=== PATIENT | male | born 1985 | race African-American/Black ===

== ENCOUNTER 2016-07-08 06:37 | Emergency (ER) | payer SELFPAY ==
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
[2016-07-08 11:41] LABS: ABSOLUTE EOSINOPHILS # (AUTO) 0.1 10^3/uL (0.0-0.6); ABSOLUTE LYMPHOCYTES (AUTO) 2.5 10^3/uL (0.5-4.7); ABSOLUTE MONOCYTES (AUTO) 1.2 10^3/uL (0.1-1.4); ABSOLUTE NEUT (AUTO) 9.3 10^3/uL (1.7-8.2); BASOPHILS % (AUTO) 0.3 % (0-2); EOSINOPHILS % (AUTO) 0.4 % (0-6); HEMATOCRIT 43.1 % (37.9-51.0); HEMOGLOBIN 13.8 g/dL (13.5-17.0); HGB HCT DIFFERENCE -1.7; LYMPHOCYTES % (AUTO) 18.9 % (13-45); MEAN CORPUSCULAR HEMOGLOBIN 24.9 pg (27.0-33.4); MEAN CORPUSCULAR VOLUME 78 fl (80-97); RED BLOOD COUNT 5.54 10^6/uL (4.35-5.55); RED CELL DISTRIBUTION WIDTH 14.3 % (11.5-14.0); SEGMENTED NEUTROPHILS % (AUTO) 71.4 % (42-78); WHITE BLOOD COUNT 13.1 10^3/uL (4.0-10.5)
[2016-07-08 11:57] LABS: APPEARANCE,URINE CLEAR; BILIRUBIN,URINE NEGATIVE (NEGATIVE); GLUCOSE, URINE NEGATIVE (NEGATIVE); KETONES,URINE TRACE mg/dL (NEGATIVE); LEUKOCYTE ESTERASE,URINE NEGATIVE (NEGATIVE); NITRITE,URINE NEGATIVE (NEGATIVE); PROTEIN,URINE 30 mg/dL (NEGATIVE); URINE SPECIFIC GRAVITY 1.036
[2016-07-08 11:58] LABS: ALANINE AMINOTRANSFERASE 50 U/L (21-72); ALBUMIN 4.6 g/dL (3.5-5.0); ALKALINE PHOSPHATASE 124 U/L (38-126); ANION GAP 14 (5-19); ASPARTATE AMINO TRANSFERASE 54 U/L (17-59); BILIRUBIN,DIRECT 0.3 mg/dL (0.0-0.4); BILIRUBIN,TOTAL 0.9 mg/dL (0.2-1.3); BLOOD UREA NITROGEN 17 mg/dL (7-20); CALCIUM 9.8 mg/dL (8.4-10.2); CARBON DIOXIDE 23 mmol/L (22-30); CHLORIDE 109 mmol/L (98-107); CREATININE RESULT 1.06 mg/dL (0.52-1.25); GLUCOSE 110 mg/dL (75-110); POTASSIUM 4.1 mmol/L (3.6-5.0); SODIUM 145.7 mmol/L (137-145); TOTAL PROTEIN 7.8 g/dL (6.3-8.2)
[2016-07-08 12:06] LABS: ALCOHOL < 10 mg/dL (NONE DETECTED)
[2016-07-08 12:07] LABS: URINE BARBITURATES SCREEN NEGATIVE; URINE METHADONE SCREEN NEGATIVE; URINE OPIATES LOW NEGATIVE; URINE PHENCYCLIDINE SCREEN NEGATIVE
--- NOTE | 2016-07-08 13:25 | EKG REPORT ---
SEVERITY:- ABNORMAL ECG - SINUS RHYTHM ST ELEVATION SUGGESTS NORMAL VARIANT, EKG DEFECTIVE IN STANDARD BIPOLAR LEADS. : Confirmed by: Candido Lai MD 08-Jul-2016 13:24:27
[2016-07-08] MEDS ORDERED: ZIPRASIDONE MESYLATE INJ/PF 20 MG SDV IM ONE (16:03)
[2016-07-08] MEDS ORDERED: DIPHENHYDRAMINE HCL 50 MG/ML VIAL IM ONE (16:03)
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
[2016-07-09] MEDS ORDERED: LORAZEPAM 1 MG TABLET PO ONE ×2 (02:06→22:14)
[2016-07-09] MEDS ORDERED: DIPHENHYDRAMINE HCL 50 MG/ML VIAL IM ONE (02:27)
[2016-07-09] MEDS ORDERED: HALOPERIDOL LACTATE INJ 5 MG/1 ML VIAL IM ONE (02:27)
[2016-07-09] MEDS ORDERED: LORAZEPAM INJ 2 MG/1 ML VIAL IM ONE (02:27)
[2016-07-09] MEDS ORDERED: ZIPRASIDONE MESYLATE INJ/PF 20 MG SDV IM ONE (02:53)
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
[2016-07-09] MEDS: ZIPRASIDONE HCL 20 MG CAPSULE PO SCH (16:40)
[2016-07-09] MEDS: CHLORPROMAZINE HCL 50 MG TABLET PO SCH ×2 (16:40→22:08)
[2016-07-09] MEDS: BENZTROPINE MESYLATE 1 MG TABLET PO SCH (16:41)
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
[2016-07-09] MEDS ORDERED: ACETAMINOPHEN 325 MG TABLET PO ONE (19:35)
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
[2016-07-10] MEDS ORDERED: LORAZEPAM 1 MG TABLET PO SCH (06:00)
[2016-07-10] MEDS: ZIPRASIDONE HCL 20 MG CAPSULE PO SCH ×3 (06:50→21:45)
[2016-07-10] MEDS: CHLORPROMAZINE HCL 50 MG TABLET PO SCH ×3 (06:50→17:34)
[2016-07-10] MEDS: BENZTROPINE MESYLATE 1 MG TABLET PO SCH ×2 (10:24→21:45)
--- NOTE | 2016-07-10 10:25 | ER Document Report ---
Doctor's Note Notes: 07/10/16 10:23 Chart reviewed and patient observed briefly. Patient was being interviewed by a member of the psychosocial team when I went to see him. He appears to be alert and in no apparent distress. Nurses report he has been generally cooperative during the last 24 hours, sometimes lethargic as though he was overmedicated. He does appear stable, awaiting further recommendations from psychosocial team.
[2016-07-10] MEDS ORDERED: LORAZEPAM INJ 2 MG/1 ML VIAL IM ONE ×2 (21:37→23:06)
[2016-07-10] MEDS ORDERED: DIPHENHYDRAMINE HCL 50 MG/ML VIAL IM ONE (21:38)
[2016-07-11] MEDS ORDERED: ZIPRASIDONE MESYLATE INJ/PF 20 MG SDV IM ONE (02:20)
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
[2016-07-11 05:07] VITALS: BP 120/73
[2016-07-11] MEDS: CHLORPROMAZINE HCL 50 MG TABLET PO SCH ×2 (06:00→11:01)
[2016-07-11] MEDS ORDERED: MIDAZOLAM 2 MG/2 ML INJ IM ONE (09:12)
[2016-07-11] MEDS: BENZTROPINE MESYLATE 1 MG TABLET PO SCH (09:15)
--- NOTE | 2016-07-11 09:57 | ER Document Report ---
Doctor's Note Notes: 07/11/16 09:57 As the rounding physician this AM, I assessed the patient's labs, vitals, and records. No concerning findings this morning. Patient denies any acute complaints.
[2016-07-11] MEDS: ZIPRASIDONE HCL 20 MG CAPSULE PO SCH (13:55)
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
== END 2016-07-11 16:26 | disposition home or self-care (01) ==
LOC: ER 06:37 → EEVIPCON 06:37 → ER 07-11 16:26
DX: F20.0 Paranoid schizophrenia (principal); R45.6 Violent behavior; R94.31 Abnormal electrocardiogram [ECG] [EKG]; I10 Essential (primary) hypertension; E11.9 Type 2 diabetes mellitus without complications; Z78.1 Physical restraint status; Z91.14 Patient's other noncompliance with medication regimen
CPT/HCPCS: 93005; 99285; 96372; 36415; 80307 ×4; 85025; 80053; 81001; 93010; J2250; J3490 ×3; J1200 ×3; J1630; J2060 ×2; J3486 ×3

== ENCOUNTER 2016-09-25 03:43 | Emergency (ER) | payer SELFPAY ==
[2016-09-25] MEDS ORDERED: FAMOTIDINE INJ/PF 20 MG/2 ML SDV IV ONE ×2 (04:43→07:00)
[2016-09-25] MEDS ORDERED: ONDANSETRON HCL INJ/PF 4 MG/2 ML SDV ONE (04:43)
--- NOTE | 2016-09-25 06:34 | ER Document Report ---
ED General - General Chief Complaint: Abdominal Pain Stated Complaint: ABDOMINAL PAIN Time Seen by Provider: 09/25/16 06:23 Mode of Arrival: Ambulatory Information source: Patient Notes: 30-year-old male presents with complaints of not feeling right after being started on risperidone. Patient denies any fevers or chills admits to generalized abdominal pain. Patient states medication was started recently TRAVEL OUTSIDE OF THE [place] IN LAST 30 DAYS: No - HPI Onset: Last week Onset/Duration: Persistent Quality of pain: Achy Severity: Mild Pain Level: 1 Associated symptoms: Other - Decreased appetite Exacerbated by: Denies Relieved by: Denies Similar symptoms previously: No Recently seen / treated by doctor: Yes - Related Data Allergies/Adverse Reactions: No Known Allergies Allergy (Verified 04/11/15 21:51) Past Medical History - Social History Smoking Status: Never Smoker Cigarette use (# per day): No Chew tobacco use (# tins/day): No Smoking Education Provided: No Family History: Reviewed & Not Pertinent Patient has suicidal ideation: No Patient has homicidal ideation: No - Past Medical History Cardiac Medical History: Reports: Hx Hypercholesterolemia, Hx Hypertension Endocrine Medical History: Reports: Hx Diabetes Mellitus Type 2 Renal/ Medical History: Denies: Hx Peritoneal Dialysis Psychiatric Medical History: Reports: Hx Bipolar Disorder, Hx Schizophrenia Past Surgical History: Reports: Hx Orthopedic Surgery - right arm - Immunizations Hx Diphtheria, Pertussis, Tetanus Vaccination: No - does not know when he got it last Review of Systems - Review of Systems Notes: REVIEW OF SYSTEMS: CONSTITUTIONAL : Denies fever, chills, or sweats. Denies recent illness. EENT: Denies eye, ear, throat, or mouth pain or symptoms. Denies nasal or sinus congestion or discharge. Denies throat, tongue, or mouth swelling or difficulty swallowing. CARDIOVASCULAR: Denies chest pain. Denies palpitations or racing or irregular heart beat. Denies ankle edema. RESPIRATORY: Denies cough, cold, or chest congestion. Denies shortness of breath, difficulty breathing, or wheezing. GASTROINTESTINAL: Admits to abdominal pain decreased appetite GENITOURINARY: Denies difficulty urinating, painful urination, burning, frequency, blood in urine, or discharge. MUSCULOSKELETAL: Denies back or neck pain or stiffness. Denies joint pain or swelling. SKIN: Denies rash, lesions or sores. HEMATOLOGIC : Denies easy bruising or bleeding. LYMPHATIC: Denies swollen, enlarged glands. NEUROLOGICAL: Denies confusion or altered mental status. Denies passing out or loss of consciousness. Denies dizziness or lightheadedness. Denies headache. Denies weakness or paralysis or loss of use of either side. Denies problems with gait or speech. Denies sensory loss, numbness, or tingling. Denies seizures. PSYCHIATRIC: Denies anxiety or stress. Denies depression, suicidal ideation, or homicidal ideation. ALL OTHER SYSTEMS REVIEWED AND NEGATIVE. Dictation was performed using [employer] voice recognition software PHYSICAL EXAMINATION: GENERAL: Well-appearing, well-nourished and in no acute distress. HEAD: Atraumatic, normocephalic. EYES: Pupils equal round and reactive to light, extraocular movements intact, sclera anicteric, conjunctiva are normal. ENT: Nares patent, oropharynx clear without exudates. Moist mucous membranes. NECK: Normal range of motion, supple without lymphadenopathy LUNGS: Breath sounds clear to auscultation bilaterally and equal. No wheezes rales or rhonchi. HEART: Regular rate and rhythm without murmurs ABDOMEN: Soft, nontender, nondistended abdomen. No guarding, no rebound. No masses appreciated. Musculoskeletal: Normal range of motion, no pitting or edema. No cyanosis. NEUROLOGICAL: Cranial nerves grossly intact. Normal speech, normal gait. Normal sensory, motor exams PSYCH: Normal mood, normal affect. SKIN: Warm, Dry, normal turgor, no rashes or lesions noted. Physical Exam - Vital signs Vitals: Temp Pulse Resp BP Pulse Ox 98.3 F 81 18 128/89 H 99 09/25/16 03:47 09/25/16 03:47 09/25/16 03:47 09/25/16 03:47 09/25/16 03:47 Course - Re-evaluation Re-evalutation: 09/25/16 06:53 Patient's lab work noted no significant abnormality, I believe he is feeling the effects of this risperidone, I did start the patient on Benadryl to counteract any interaction he is having otherwise physical examination was negative. Patient has been encouraged to continue his medications unless it begins to cause any life-threatening issues as he is much calmer and less aggressive than previous presentation After performing a Medical Screening Examination, I estimate there is LOW risk for ACUTE APPENDICITIS, BOWEL OBSTRUCTION, ACUTE CHOLECYSTITIS, PERFORATED DIVERTICULITIS, INCARCERATED HERNIA, PANCREATITIS, or PERFORATED ULCER, thus I consider the discharge disposition reasonable. Also, there is no evidence or peritonitis, sepsis, or toxicity. I have reevaluated this patient multiple times and no significant life threatening changes are noted. The patient and I have discussed the diagnosis and risks, and we agree with discharging home with close follow-up with the understanding that symptoms and presentations can change. We also discussed returning to the Emergency Department immediately if new or worsening symptoms occur. We have discussed the symptoms which are most concerning (e.g., bloody stool, fever, changing or worsening pain, intractable vomiting - standard verbal up date) that necessitate immediate return. - Vital Signs Vital signs: Temp Pulse Resp BP Pulse Ox 97.6 F 54 L 18 127/68 H 99 09/25/16 06:41 09/25/16 06:41 09/25/16 03:47 09/25/16 06:41 09/25/16 06:41 Discharge - Discharge Clinical Impression: Medication reaction Qualifiers: Encounter type: initial encounter Qualified Code(s): T88.7XXA - Unspecified adverse effect of drug or medicament, initial encounter Abdominal pain Qualifiers: Abdominal location: generalized Qualified Code(s): R10.84 - Generalized abdominal pain Condition: Stable Disposition: HOME, SELF-CARE Instructions: Abdominal Pain ([facility]), Acute Allergic Reaction ([facility]) Additional Instructions: Please follow up with your prescribing physician today or return immediately if there are any other concerns Prescriptions: Diphenhydramine HCl 50 mg PO Q6 #20 capsule
[2016-09-25 06:48] VITALS: BP 127/68
[2016-09-25] MEDS ORDERED: NORMAL SALINE 1000 ML 1,000 ML IV ONE (07:00)
[2016-09-25] MEDS ORDERED: ONDANSETRON HCL INJ/PF 4 MG/2 ML SDV IV ONE (07:00)
[2016-09-25 07:18] LABS: ALANINE AMINOTRANSFERASE 38 U/L (21-72); ALBUMIN 4.2 g/dL (3.5-5.0); ALKALINE PHOSPHATASE 101 U/L (38-126); ANION GAP 11 (5-19); ASPARTATE AMINO TRANSFERASE 22 U/L (17-59); BILIRUBIN,DIRECT 0.3 mg/dL (0.0-0.4); BILIRUBIN,TOTAL 0.6 mg/dL (0.2-1.3); BLOOD UREA NITROGEN 12 mg/dL (7-20); CALCIUM 9.4 mg/dL (8.4-10.2); CARBON DIOXIDE 24 mmol/L (22-30); CHLORIDE 109 mmol/L (98-107); GLUCOSE 83 mg/dL (75-110); LIPASE 69.4 U/L (23-300); POTASSIUM 3.7 mmol/L (3.6-5.0); SODIUM 144.3 mmol/L (137-145)
[2016-09-25 07:19] LABS: ABSOLUTE EOSINOPHILS # (AUTO) 0.1 10^3/uL (0.0-0.6); ABSOLUTE LYMPHOCYTES (AUTO) 2.2 10^3/uL (0.5-4.7); ABSOLUTE MONOCYTES (AUTO) 0.8 10^3/uL (0.1-1.4); ABSOLUTE NEUT (AUTO) 8.1 10^3/uL (1.7-8.2); BASOPHILS % (AUTO) 0.3 % (0-2); EOSINOPHILS % (AUTO) 1.1 % (0-6); HEMATOCRIT 38.6 % (37.9-51.0); HGB HCT DIFFERENCE -2.6; LYMPHOCYTES % (AUTO) 19.2 % (13-45); MEAN CORPUSCULAR HEMOGLOBIN 24.8 pg (27.0-33.4); MEAN CORPUSCULAR HGB CONC 31.2 g/dL (32.0-36.0); MEAN CORPUSCULAR VOLUME 80 fl (80-97); MONOCYTES % (AUTO) 7.4 % (3-13); RED BLOOD COUNT 4.85 10^6/uL (4.35-5.55); RED CELL DISTRIBUTION WIDTH 16.3 % (11.5-14.0); WHITE BLOOD COUNT 11.3 10^3/uL (4.0-10.5)
== END 2016-09-25 06:48 | disposition home or self-care (01) ==
LOC: EEVIPCON 03:43 → ER 03:43
DX: R10.84 Generalized abdominal pain (principal); T43.595A Adverse effect of other antipsychotics and neuroleptics, initial encounter; R63.0 Anorexia; F20.9 Schizophrenia, unspecified; F31.9 Bipolar disorder, unspecified; I10 Essential (primary) hypertension; E11.9 Type 2 diabetes mellitus without complications
CPT/HCPCS: 36415; 80053; 83690; 85025; 96361; 96374; 96375; 99284

== ENCOUNTER 2016-10-01 11:54 | Emergency (ER) | payer SELFPAY ==
--- NOTE | 2016-10-01 12:01 | ER Document Report ---
ED Medical Screen (RME) - General Stated Complaint: PSYCH EVAL Time Seen by Provider: 10/01/16 12:00 Notes: Patient brought in by on IVC. Patient was agitated so he was taken straight to room 44. TRAVEL OUTSIDE OF THE [place] IN LAST 30 DAYS: No - Related Data Allergies/Adverse Reactions: No Known Allergies Allergy (Verified 04/11/15 21:51) Past Medical History - Past Medical History Cardiac Medical History: Reports: Hx Hypercholesterolemia, Hx Hypertension Endocrine Medical History: Reports: Hx Diabetes Mellitus Type 2 Renal/ Medical History: Denies: Hx Peritoneal Dialysis Psychiatric Medical History: Reports: Hx Bipolar Disorder, Hx Schizophrenia Past Surgical History: Reports: Hx Orthopedic Surgery - right arm - Immunizations Hx Diphtheria, Pertussis, Tetanus Vaccination: No - does not know when he got it last
[2016-10-01] MEDS ORDERED: ZIPRASIDONE MESYLATE INJ/PF 20 MG SDV IM ONE (12:45)
[2016-10-01] MEDS ORDERED: LORAZEPAM INJ 2 MG/1 ML VIAL IM ONE (12:45)
--- NOTE | 2016-10-01 12:47 | ER Document Report ---
ED Psych Disorder / Suicide - General Stated Complaint: PSYCH EVAL Time Seen by Provider: 10/01/16 12:00 Mode of Arrival: Ambulatory Information source: Patient TRAVEL OUTSIDE OF THE [place] IN LAST 30 DAYS: No - HPI Patient complains to provider of: Aggression, Agitated, Bizarre behavior Onset: This morning Onset was: Cannot confirm Suicide Risk Factors: Male Associated symptoms: Aggressive, Agitated, Angry Notes: Patient is a 30-year-old male brought to the emergency room by law enforcement and EMS on IVC paperwork that was completed by [facility], apparently patient had an appointment there this morning, he was aggressive, threatening violence toward several staff members as well as his philanthropy officer, he has a history of mental illness, was recently incarcerated and released on September 16, apparently according to his philanthropy officer he has not been taking his medications since then, leading to his visit today, upon arrival patient is pacing the room, stating obscenities, he is uncooperative, and unwilling to answer direct questions, which required intramuscular medications to calm him to ensure patient safety and safety of others around him - Related Data Allergies/Adverse Reactions: No Known Allergies Allergy (Verified 04/11/15 21:51) Past Medical History - General Information source: Transfer Record - Social History Smoking Status: Unknown if Ever Smoked Family History: Reviewed & Not Pertinent - Past Medical History Cardiac Medical History: Reports: Hx Hypercholesterolemia, Hx Hypertension Endocrine Medical History: Reports: Hx Diabetes Mellitus Type 2 Renal/ Medical History: Denies: Hx Peritoneal Dialysis Psychiatric Medical History: Reports: Hx Bipolar Disorder, Hx Schizophrenia Past Surgical History: Reports: Hx Orthopedic Surgery - right arm - Immunizations Hx Diphtheria, Pertussis, Tetanus Vaccination: No - does not know when he got it last Review of Systems - Review of Systems -: Yes ROS unobtainable due to patient's medical condition Neurological/Psychological: No symptoms reported Physical Exam - Vital signs Vitals: Temp Pulse Resp BP Pulse Ox 98.8 F 75 20 133/92 H 97 10/01/16 11:58 10/01/16 11:58 10/01/16 11:58 10/01/16 11:58 10/01/16 11:58 Interpretation: Normal - General General appearance: Alert - HEENT Head: Normocephalic, Atraumatic Eyes: Normal Cornea: Normal Extraocular movements intact: Yes Eyelashes: Normal Pupils: PERRL - Respiratory Respiratory status: No respiratory distress - Cardiovascular Rhythm: Regular - Abdominal Inspection: Normal - Back Back: Normal - Extremities General upper extremity: Normal inspection General lower extremity: Normal inspection - Neurological Neuro grossly intact: Yes - Psychological Associated symptoms: Aggressive, Agitated, Angry, Labile, Restlessness - Skin Skin Temperature: Warm Skin Moisture: Dry Skin Color: Normal Course - Re-evaluation Re-evalutation: 10/01/16 19:29 Patient arrived to emergency room with IVC that was completed by [facility], apparently he was recently incarcerated and when released on September 16 it appears as though he is not taking his medications as prescribed, has a history of mental illness previously, he is pacing in the room, threatening and aggressive at time of my initial evaluation, requiring intramuscular injections of medications to help calm him down to ensure his safety and the safety of others , patient will remain on involuntary commitment until further evaluation by mental health team can be completed and additional recommendations can be made - Vital Signs Vital signs: Temp Pulse Resp BP Pulse Ox 98.8 F 75 16 133/92 H 97 10/01/16 11:58 10/01/16 11:58 10/01/16 12:00 10/01/16 11:58 10/01/16 11:58 - Laboratory Result Diagrams: 10/01/16 13:00 10/01/16 13:00 Laboratory results interpreted by me: 10/01/16 10/01/16 13:00 13:00 MCV 79 L MCH 25.9 L RDW 16.4 H Glucose 117 H Salicylates < 1.0 L Acetaminophen < 10 L Discharge - Discharge Clinical Impression: Aggressive behavior, Mental disorder Condition: Stable Disposition: PSYCH HOSP/UNIT
[2016-10-01 13:07] LABS: APPEARANCE,URINE CLEAR; BILIRUBIN,URINE NEGATIVE (NEGATIVE); GLUCOSE, URINE NEGATIVE (NEGATIVE); KETONES,URINE NEGATIVE (NEGATIVE); LEUKOCYTE ESTERASE,URINE NEGATIVE (NEGATIVE); NITRITE,URINE NEGATIVE (NEGATIVE); PROTEIN,URINE NEGATIVE (NEGATIVE); URINE SPECIFIC GRAVITY 1.002; UROBILINOGEN,URINE NEGATIVE mg/dL (<2.0)
[2016-10-01 13:32] LABS: URINE BARBITURATES SCREEN NEGATIVE; URINE METHADONE SCREEN NEGATIVE; URINE OPIATES LOW NEGATIVE; URINE PHENCYCLIDINE SCREEN NEGATIVE
[2016-10-01 13:39] LABS: ALANINE AMINOTRANSFERASE 23 U/L (21-72); ALBUMIN 4.8 g/dL (3.5-5.0); ALKALINE PHOSPHATASE 101 U/L (38-126); ANION GAP 12 (5-19); ASPARTATE AMINO TRANSFERASE 21 U/L (17-59); BILIRUBIN,DIRECT 0.3 mg/dL (0.0-0.4); BILIRUBIN,TOTAL 0.8 mg/dL (0.2-1.3); BLOOD UREA NITROGEN 12 mg/dL (7-20); CALCIUM 9.5 mg/dL (8.4-10.2); CARBON DIOXIDE 23 mmol/L (22-30); CHLORIDE 106 mmol/L (98-107); CREATININE RESULT 0.79 mg/dL (0.52-1.25); GLUCOSE 117 mg/dL (75-110); POTASSIUM 4.1 mmol/L (3.6-5.0); SODIUM 141.1 mmol/L (137-145); TOTAL PROTEIN 7.8 g/dL (6.3-8.2)
[2016-10-01 13:40] LABS: ALCOHOL < 10 mg/dL (NONE DETECTED)
[2016-10-01 13:55] LABS: ABSOLUTE EOSINOPHILS # (AUTO) 0.1 10^3/uL (0.0-0.6); ABSOLUTE LYMPHOCYTES (AUTO) 1.6 10^3/uL (0.5-4.7); ABSOLUTE MONOCYTES (AUTO) 0.6 10^3/uL (0.1-1.4); BASOPHILS % (AUTO) 0.5 % (0-2); EOSINOPHILS % (AUTO) 1.1 % (0-6); HEMATOCRIT 43.2 % (37.9-51.0); HEMOGLOBIN 14.2 g/dL (13.5-17.0); HGB HCT DIFFERENCE -0.6; MEAN CORPUSCULAR HEMOGLOBIN 25.9 pg (27.0-33.4); MEAN CORPUSCULAR HGB CONC 32.8 g/dL (32.0-36.0); MEAN CORPUSCULAR VOLUME 79 fl (80-97); MONOCYTES % (AUTO) 6.6 % (3-13); RED BLOOD COUNT 5.47 10^6/uL (4.35-5.55); RED CELL DISTRIBUTION WIDTH 16.4 % (11.5-14.0); SEGMENTED NEUTROPHILS % (AUTO) 74.8 % (42-78); WHITE BLOOD COUNT 9.3 10^3/uL (4.0-10.5)
--- NOTE | 2016-10-01 14:25 | ER Document Report ---
ED Psych Disorder / Suicide - General Mode of Arrival: Ambulatory Information source: Patient, Law Enforcement, [facility]Robin Office - [facility], [facility] Records TRAVEL OUTSIDE OF THE [place] IN LAST 30 DAYS: No - HPI Patient complains to provider of: Aggression, Agitated, Hallucinating, Suicidal ideation - per IVC petition Onset: Other Onset was: Cannot confirm Suicide Risk Factors: Hallucinations, Lack of social support, Male, No spouse, Schizophrenia, Substance abuse Normal mood: No Associated symptoms: Agitated, Angry, Anxious, Irritable, Labile, Paranoid, Uncooperative Similar symptoms previously: Yes Recently seen / treated by doctor: Yes <CHRISTIANA BULLOCK - Last Filed: 10/01/16 14:20> <NOHEMI QUIROZ - Last Filed: 10/02/16 10:34> - General Chief Complaint: Psych Problem Stated Complaint: PSYCH EVAL Time Seen by Provider: 10/01/16 12:00 - HPI Notes: Patient is a 30 year old male who presented to [facility] ED under IVC, petitioned by [facility] Counselor. Per petition, patient is paranoid, attempted to assault someone in their lobby, and also threatened to hit his PO. Patient today is cursing loudly and generally verbally aggressive towards all who encounter him (security , nurses, MD, aligner typewriter). Patient was almost immediately administered IM medications to assist in remaining calm and for safety of patient and others. Patient is sleeping a this time. Will attempt to get collateral information and attempt evaluate patient at a later time. Tool And Production PlannerBernie states he just dropped the patient off at [facility] and had no idea he was IVC. PO states that the patient was incarcerated from July 12 (almost immediately upon dc from this ER) until September 16. PO states because the pending charges were criminal, they were in violation of his parole. PO States in [place], individual's on parole are ineligible for damon if there are even pending parole violations. PO states while patient was incarcerated, he was sent to [facility] for safe keeping, where his medications were regulated. PO States once he was released (pending charges were dropped), he did well for roughly one week; however, threw away 3 weeks worth of medications and has not taken them since. Per PO, patient is reportedly residing with his mother, who has been contacting him almost daily. PO states over the weekend, the patient "was just talking out of his head." PO states that he scheduled the appointment for today, and spoke with [facility] yesterday advising them of patient's baseline presentation. PO additionally reports he will pick the patient up JENIFER Christian states the patient came in for assessment and was seen for the medication provider. Was told the patient came through the door in a threatening manner, made threats that he was going to harm his PO, actively hallucination, and also mentioned suicidal ideations. Patient reportedly approached another client in the lobby, making posturing gestures. Patient was repeatedly talking about people going through his phone and wallet. Anahi states, "whatever he is seeing or hearing, he is acting it out here as well." [facility] Nurse states the patient come to their care home, went to [place], and then returned for about 1 week. Patient was reportedly on the following medications while in care home: HCTZ 25 Risperidone 2 mg qam Risperidone 4mg qhs Cogentin 1 mg qhs Zantac 150 bid Patient is recommended to continue under IVC for further evaluation and disposition and recommendations. I consulted with Dr. Jha in regards to the care and management of this patient. ED MD is in agreement with disposition and recommendations. (CHRISTIANA BULLOCK) Patient was accepted to [facility]; transportation will occur today. (NOHEMI QUIROZ) - Related Data Allergies/Adverse Reactions: No Known Allergies Allergy (Verified 04/11/15 21:51) Past Medical History - General Information source: Patient - Social History Family History: Reviewed & Not Pertinent - Past Medical History Cardiac Medical History: Reports: Hx Hypercholesterolemia, Hx Hypertension Endocrine Medical History: Reports: Hx Diabetes Mellitus Type 2 Renal/ Medical History: Denies: Hx Peritoneal Dialysis Psychiatric Medical History: Reports: Hx Bipolar Disorder, Hx Schizophrenia Past Surgical History: Reports: Hx Orthopedic Surgery - right arm - Immunizations Hx Diphtheria, Pertussis, Tetanus Vaccination: No - does not know when he got it last <CHRISTIANA BULLOCK - Last Filed: 10/01/16 14:20> - Social History Smoking Status: Unknown if Ever Smoked <NOHEMI QUIROZ - Last Filed: 10/02/16 10:34> Course - Laboratory Result Diagrams: 10/01/16 13:00 10/01/16 13:00 <CHRISTIANA BULLOCK - Last Filed: 10/01/16 14:20> - Laboratory Result Diagrams: 10/01/16 13:00 10/01/16 13:00 <NOHEMI QUIROZ - Last Filed: 10/02/16 10:34> - Vital Signs Vital signs: Temp Pulse Resp BP Pulse Ox 98.8 F 80 20 139/79 H 100 10/01/16 11:58 10/02/16 06:51 10/02/16 06:51 10/02/16 06:51 10/02/16 06:51 - Laboratory Laboratory results interpreted by me: 10/01/16 10/01/16 13:00 13:00 MCV 79 L MCH 25.9 L RDW 16.4 H Glucose 117 H Salicylates < 1.0 L Acetaminophen < 10 L Discharge <CHRISTIANA BULLOCK - Last Filed: 10/01/16 14:20> <NOHEMI QUIROZ - Last Filed: 10/02/16 10:34> - Discharge Clinical Impression: Aggressive behavior, Mental health disorder
[2016-10-01] MEDS ORDERED: CHLORPROMAZINE HCL INJ 25 MG/1 ML AMPULE IV PRN (14:55)
[2016-10-01] MEDS ORDERED: OLANZAPINE INJ/PF 10 MG SDV IM SCH (18:00)
[2016-10-01] MEDS: CHLORPROMAZINE HCL INJ 25 MG/1 ML AMPULE IM SCH (22:00)
[2016-10-02] MEDS ORDERED: CHLORPROMAZINE HCL 50 MG TABLET PO ONE (04:45)
[2016-10-02] MEDS: CHLORPROMAZINE HCL INJ 25 MG/1 ML AMPULE IM SCH (04:50)
--- NOTE | 2016-10-02 09:34 | PSYCHOLOGICAL NOTE ---
Psych Note - Psych Note Psych Note: Patient has resting comfortably in the bed. He was apparently verbally hostile with staff this morning but is not with me. Patient is currently awaiting placement. Patient does have a history of violent behavior and he had a team meeting today to discuss appropriate procedure should patient escalate and become agitated. Currently the Thorazine seems to be working well to sedate the patient.
[2016-10-02] MEDS ORDERED: BENZTROPINE MESYLATE INJ 2 MG/2 ML AMPULE IM SCH (10:00)
[2016-10-02] MEDS ORDERED: CHLORPROMAZINE HCL 50 MG TABLET PO SCH (10:00)
[2016-10-02] MEDS ORDERED: BENZTROPINE MESYLATE 1 MG TABLET PO ONE (10:30)
[2016-10-02 12:05] VITALS: BP 129/76
== END 2016-10-02 11:30 ==
LOC: ER 11:54
DX: F20.9 Schizophrenia, unspecified (principal); R45.6 Violent behavior; Z91.14 Patient's other noncompliance with medication regimen; I10 Essential (primary) hypertension; E11.9 Type 2 diabetes mellitus without complications
CPT/HCPCS: 99285; 96372; 36415; 80307 ×4; 85025; 80053; 81001; J3230; J3490; J2060; J3486

== ENCOUNTER 2017-03-12 15:28 | Emergency (ER) | payer SELFPAY ==
--- NOTE | 2017-03-12 16:47 | RADIOLOGY REPORT (SQ) ---
EXAM DESCRIPTION: CHEST PA/LAT COMPLETED DATE/TIME: 03/12/2017 4:33 pm REASON FOR STUDY: chest pain COMPARISON: None. EXAM PARAMETERS: NUMBER OF VIEWS: two views TECHNIQUE: Digital Frontal and Lateral radiographic views of the chest acquired. RADIATION DOSE: NA LIMITATIONS: none FINDINGS: LUNGS AND PLEURA: No opacities, masses or pneumothorax. No pleural effusion. MEDIASTINUM AND HILAR STRUCTURES: No masses or contour abnormalities. HEART AND VASCULAR STRUCTURES: Heart normal size. No evidence for failure. BONES: No acute findings. HARDWARE: None in the chest. OTHER: No other significant finding. IMPRESSION: NO SIGNIFICANT RADIOGRAPHIC FINDING IN THE CHEST. TECHNICAL DOCUMENTATION: JOB ID: [id number] [employer]- All Rights Reserved
[2017-03-12 16:56] LABS: ABSOLUTE BASOPHILS # (AUTO) 0.1 10^3/uL (0.0-0.2); ABSOLUTE LYMPHOCYTES (AUTO) 1.3 10^3/uL (0.5-4.7); ABSOLUTE MONOCYTES (AUTO) 0.8 10^3/uL (0.1-1.4); BASOPHILS % (AUTO) 0.6 % (0-2); EOSINOPHILS % (AUTO) 0.2 % (0-6); HEMATOCRIT 45.8 % (37.9-51.0); HEMOGLOBIN 15.1 g/dL (13.5-17.0); LYMPHOCYTES % (AUTO) 10.6 % (13-45); MEAN CORPUSCULAR VOLUME 79 fl (80-97); MONOCYTES % (AUTO) 6.3 % (3-13); PLATELET COUNT 294 10^3/uL (150-450); RED BLOOD COUNT 5.82 10^6/uL (4.35-5.55); RED CELL DISTRIBUTION WIDTH 15.2 % (11.5-14.0); SEGMENTED NEUTROPHILS % (AUTO) 82.3 % (42-78); TOTAL CELLS COUNTED % (AUTO) 100 %; WHITE BLOOD COUNT 12.1 10^3/uL (4.0-10.5)
[2017-03-12 17:10] LABS: ALANINE AMINOTRANSFERASE 27 U/L (21-72); ALBUMIN 4.8 g/dL (3.5-5.0); ALKALINE PHOSPHATASE 96 U/L (38-126); ANION GAP 12 (5-19); ASPARTATE AMINO TRANSFERASE 37 U/L (17-59); BILIRUBIN,DIRECT 0.4 mg/dL (0.0-0.4); BILIRUBIN,TOTAL 0.7 mg/dL (0.2-1.3); BLOOD UREA NITROGEN 13 mg/dL (7-20); CALCIUM 10.1 mg/dL (8.4-10.2); CARBON DIOXIDE 26 mmol/L (22-30); CHLORIDE 107 mmol/L (98-107); GLUCOSE 88 mg/dL (75-110); POTASSIUM 4.7 mmol/L (3.6-5.0); SODIUM 144.5 mmol/L (137-145); TOTAL PROTEIN 7.8 g/dL (6.3-8.2)
--- NOTE | 2017-03-12 17:20 | ER Document Report ---
ED General - General Chief Complaint: Chest Wall Pain Stated Complaint: CHEST WALL PAIN Time Seen by Provider: 03/12/17 15:32 Mode of Arrival: Medic Information source: Patient Notes: 31-year-old male presents with complaints of chest wall pain on the left side. Patient has a pinpoint location left anterior chest wall they says when it is pushed it hurts. Patient denies any fevers or chills denies any cough shortness breath difficulty breathing. Chest pain started prior to arrival Patient denies any DVT or PE risk factors TRAVEL OUTSIDE OF THE [place] IN LAST 30 DAYS: No - HPI Onset: Just prior to arrival Onset/Duration: Sudden Quality of pain: Sharp Severity: Mild Pain Level: 1 Associated symptoms: Body/muscle aches Exacerbated by: Movement Relieved by: Denies Similar symptoms previously: No Recently seen / treated by doctor: No - Related Data Allergies/Adverse Reactions: No Known Allergies Allergy (Verified 04/11/15 21:51) Past Medical History - Social History Smoking Status: Current Every Day Smoker Cigarette use (# per day): Yes Chew tobacco use (# tins/day): No Smoking Education Provided: No Family History: Reviewed & Not Pertinent Patient has suicidal ideation: No Patient has homicidal ideation: No - Past Medical History Cardiac Medical History: Reports: Hx Hypercholesterolemia, Hx Hypertension Endocrine Medical History: Reports: Hx Diabetes Mellitus Type 2 Renal/ Medical History: Denies: Hx Peritoneal Dialysis Psychiatric Medical History: Reports: Hx Bipolar Disorder, Hx Schizophrenia Past Surgical History: Reports: Hx Orthopedic Surgery - right arm - Immunizations Hx Diphtheria, Pertussis, Tetanus Vaccination: No - does not know when he got it last Review of Systems - Review of Systems Notes: REVIEW OF SYSTEMS: CONSTITUTIONAL : Denies fever, chills, or sweats. Denies recent illness. EENT: Denies eye, ear, throat, or mouth pain or symptoms. Denies nasal or sinus congestion or discharge. Denies throat, tongue, or mouth swelling or difficulty swallowing. CARDIOVASCULAR: Denies chest pain. Denies palpitations or racing or irregular heart beat. Denies ankle edema. Admits to chest wall pain RESPIRATORY: Denies cough, cold, or chest congestion. Denies shortness of breath, difficulty breathing, or wheezing. GASTROINTESTINAL: Denies abdominal pain or distention. Denies nausea, vomiting , or diarrhea. Denies blood in vomitus, stools, or per rectum. Denies black, tarry stools. Denies constipation. GENITOURINARY: Denies difficulty urinating, painful urination, burning, frequency, blood in urine, or discharge. MUSCULOSKELETAL: Denies back or neck pain or stiffness. Denies joint pain or swelling. SKIN: Denies rash, lesions or sores. HEMATOLOGIC : Denies easy bruising or bleeding. LYMPHATIC: Denies swollen, enlarged glands. NEUROLOGICAL: Denies confusion or altered mental status. Denies passing out or loss of consciousness. Denies dizziness or lightheadedness. Denies headache. Denies weakness or paralysis or loss of use of either side. Denies problems with gait or speech. Denies sensory loss, numbness, or tingling. Denies seizures. PSYCHIATRIC: Denies anxiety or stress. Denies depression, suicidal ideation, or homicidal ideation. ALL OTHER SYSTEMS REVIEWED AND NEGATIVE. Dictation was performed using [employer] voice recognition software PHYSICAL EXAMINATION: GENERAL: Well-appearing, well-nourished and in no acute distress. HEAD: Atraumatic, normocephalic. EYES: Pupils equal round and reactive to light, extraocular movements intact, sclera anicteric, conjunctiva are normal. ENT: Nares patent, oropharynx clear without exudates. Moist mucous membranes. NECK: Normal range of motion, supple without lymphadenopathy LUNGS: Breath sounds clear to auscultation bilaterally and equal. No wheezes rales or rhonchi. HEART: Regular rate and rhythm without murmurs ABDOMEN: Soft, nontender, nondistended abdomen. No guarding, no rebound. No masses appreciated. Musculoskeletal: Normal range of motion, no pitting or edema. No cyanosis. Chest wall pain easily reproducible upon palpation NEUROLOGICAL: Cranial nerves grossly intact. Normal speech, normal gait. Normal sensory, motor exams PSYCH: Normal mood, normal affect. SKIN: Warm, Dry, normal turgor, no rashes or lesions noted. Course - Re-evaluation Re-evalutation: 03/12/17 18:11 On examination patient is in absolutely no distress, he has been resting comfortably in the room sleeping, his chest pain is easily reproducible upon palpation, he has no risk factors for any cardiac event, denies any IV drug use , he denies any DVT or PE risk factors and a d-dimer was negative, therefore I believe patient is stable for discharge with close follow with primary care physician Patient denies having any concerns After performing a Medical Screening Examination, I estimate there is LOW risk for RUPTURED ESOPHAGUS, PNEUMOTHORAX, PULMONARY EMBOLISM, ACUTE CORONARY SYNDROME, OR THORACIC AORTIC DISSECTION, thus I consider the discharge disposition reasonable. I have reevaluated this patient multiple times and no significant life threatening changes are noted. The patient and I have discussed the diagnosis and risks, and we agree with discharging home with close follow-up. We also discussed returning to the Emergency Department immediately if new or worsening symptoms occur. We have discussed the symptoms which are most concerning (e.g., bloody sputum, worsening pain or shortness of breath) that necessitate immediate return. - Laboratory Result Diagrams: 03/12/17 16:15 03/12/17 16:15 Laboratory results interpreted by me: 03/12/17 16:15 WBC 12.1 H RBC 5.82 H MCV 79 L MCH 26.0 L RDW 15.2 H Seg Neutrophils % 82.3 H Lymphocytes % 10.6 L Absolute Neutrophils 10.0 H - Diagnostic Test Radiology reviewed: Image reviewed, Reports reviewed - EKG Interpretation by Me EKG shows normal: Sinus rhythm, Sisters, Intervals, QRS Complexes Discharge - Discharge Clinical Impression: Chest wall pain Condition: Stable Disposition: HOME, SELF-CARE Instructions: Anti-Inflammatory Medication ([facility]), Chest Wall Pain ([facility]) Additional Instructions: Follow up with your physician tomorrow for further care or return to the ED IMMEDIATELY if symptoms worsen or new concerns occur. If you cannot afford to follow up with your primary care physician a list of low cost clinics have been provided at the end of your discharge papers as well. Prescriptions: Naproxen 500 mg PO BID #20 tablet
[2017-03-12 17:30] LABS: ERYTHROCYTE SEDIMENTATION RATE 2 mm/hr (0-15)
[2017-03-12 18:23] VITALS: BP 118/72
--- NOTE | 2017-03-13 09:20 | EKG REPORT ---
SEVERITY:- ABNORMAL ECG - SINUS RHYTHM PROBABLE LEFT ATRIAL ABNORMALITY ST ELEVATION SUGGESTS PERICARDITIS : Confirmed by: Gautam Thompson 13-Mar-2017 09:19:46
== END 2017-03-12 18:23 | disposition home or self-care (01) ==
LOC: ER 15:28
DX: R07.89 Other chest pain (principal); I10 Essential (primary) hypertension; F17.210 Nicotine dependence, cigarettes, uncomplicated; E11.9 Type 2 diabetes mellitus without complications
CPT/HCPCS: 36415; 71046; 80053; 85025; 85379; 85652; 93005; 93010; 99285